=== PATIENT | female | born 1960 | race Two or more races ===

== ENCOUNTER 2018-10-23 05:46 | Day surgery (SDC) | payer BC ==
[~2018-10-23] VITALS: Ht 167.6 cm; Wt 93.0 kg
[2018-10-23 07:00] VITALS: Ht 167.6 cm; Wt 93.0 kg
[2018-10-23 07:06] VITALS: BP 119/67; PULSE 69; RESP 13
[2018-10-23] MEDS ORDERED: NO MEDS. (07:08)
[2018-10-23 08:15] VITALS: BP 113/70; PULSE 68; RESP 13; RESP 16
[2018-10-23] MEDS ORDERED: MIDAZOLAM 1 MG/ML 2 ML INJ ONE ×2 (08:25)
[2018-10-23] MEDS ORDERED: FENTAnyl 50 MCG/ML VIAL ONE (08:25)
[2018-10-23 08:30] VITALS: BP 118/71; PULSE 60
== END 2018-10-23 12:49 | disposition home or self-care (01) ==
LOC: GIL 05:46
PROVIDERS: ATTEND Internal Medicine Gastroenterology
DX: Z12.11 Encounter for screening for malignant neoplasm of colon (principal); D12.4 Benign neoplasm of descending colon; D64.4 Congenital dyserythropoietic anemia; K57.30 Diverticulosis of large intestine without perforation or abscess without bleeding
CPT/HCPCS: 45385; 88305; J2250; J3010; Z7610